=== PATIENT | male | born 1950 | race Caucasian/White ===

== ENCOUNTER 2018-06-22 06:27 | Inpatient (IN) | payer MEDICARE, OTHER ==
[2018-06-22] VITALS (16 sets, daily range): BP systolic 107–171; BP diastolic 54–102
[~2018-06-22] VITALS: Ht 152.4 cm; Wt 115.2 kg
--- NOTE | ~2018-06-22 | H ---
[address] [address] HISTORY AND PHYSICAL Name: JESSICA MURPHY Room: [address] IN ..#: [id number] Admission: 06/22/18 Attend Phys: Stoney Goodrich MD, F Discharge: 06/24/18 Date of : 46 Report #: [id number] THIS REPORT FOR: //name// For History and Physical please refer to the consultation note in the patient's medical record. By: [id number] Records Staff KARIN /RAMANA
[~2018-06-22 06:27] MED LIST: ADULT LOW DOSE81 MG PO; COLACE100 MG; ENOXAPARIN30 MG/0.3; FISH OIL 1,0001 EAC5 PO; FLOMAX PO; MIRALAX255 GM PO; MULTIVITAMINS OR; NOHOMEMEDICATIONS; NORCO 5-325 TA1 EACH; NORCO 5-325 TA1 EACH PO; OXYIR 5 MG CAPSU5 M1; PERCOCET 10-321 EACH PO; PERCOCET 5-3251 EACH PO; PYRIDIUM200 MG OR; REGLAN 10 MG TA10 M1 PO; VICODIN 5-5001 EACH
[2018-06-22] MEDS ORDERED: METFORMIN HCL500 MG PO (06:58)
[2018-06-22] MEDS ORDERED: LIPITOR10 MG PO (06:59)
[2018-06-22 07:01] LABS: ABSOLUTE BASOPHILS 0.1 thou/uL (0.0-0.2); ABSOLUTE EOSINOPHILS 0.3 thou/uL (0.0-0.7); ABSOLUTE LYMPHOCYTES 3.6 thou/uL (0.8-5.3); ABSOLUTE MONOCYTES 1.2 thou/uL (0.0-1.2); ABSOLUTE NEUTROPHILS 5.9 thou/uL (1.6-8.1); BASOPHILS 0.6 %; EOSINOPHILS 3.1 %; HEMATOCRIT 50.6 % (42.0-52.0); HEMOGLOBIN 16.9 gm/dL (14.0-18.0); LYMPHOCYTES 32.3 %; MCHC 33.4 g/dL (28.0-37.0); MCV 86.8 fL (80.0-100.0); MONOCYTES 10.5 %; MPV 8.9 fl. (7.2-11.1); NUCLEATED RBCS 0 /100WBC; PLATELET COUNT* 212 thou/uL (150-400); POLYS 53.5 %; RBC 5.83 mil/uL (4.50-6.00); RDW-CV 13.8 % (10.5-14.5)
[2018-06-22 07:04] LABS: ANION GAP 13 mmol/L (7-16); APTT 26.7 Seconds (25.0-31.3); BUN 19 mg/dL (7-18); CALCIUM 9.6 mg/dL (8.5-10.1); CHLORIDE 103 mmol/L (98-107); CO2 24 mmol/L (21-32); CREATININE 1.4 mg/dL (0.6-1.3); GLUCOSE 204 mg/dL (70-99); POTASSIUM 4.4 mmol/L (3.5-5.1); PROTIME 10.1 Seconds (9.20-11.50); SODIUM 140 mmol/L (136-145)
[2018-06-22 07:10] LABS: ALBUMIN 4.1 g/dL (3.4-5.0); ALKALINE PHOSPHATASE 119 U/L (46-116); CHOLESTEROL 129 mg/dL (<200); HDL CHOLESTEROL 32 mg/dL (>40); LDL CHOLESTEROL 69 mg/dL (<100); MAGNESIUM 2.2 mg/dL (1.8-2.4); SGOT 24 U/L (15-37); SGPT 41 U/L (30-65); TOTAL BILIRUBIN 0.4 mg/dL (<0.1-1.0); TOTAL PROTEIN 7.4 g/dL (6.4-8.2); TRIGLYCERIDE 143 mg/dL (<150); TROPONIN-I LEVEL <0.06 ng/mL (<0.06); VLDL 29 mg/dL (<40)
[2018-06-22 07:12] LABS: SERUM ASSESSMENT Clear
--- NOTE | 2018-06-22 11:52 | EKG ---
[place] [address] ELECTROCARDIOGRAM REPORT Name: JESSICA MURPHY Room: [place] [address] ADM IN .R.#: [id number] Admission: 06/22/18 Attend Phys: Stoney Goodrich MD, F Discharge: Date of : 46 Report #: [id number] THIS REPORT FOR: //name// [facility] ED Test Date: 2018-06-22 Test Time: 06:44:58 Pat Name: JESSICA MURPHY Department: Room: [facility] Gender: M Steel Manager: Immanuel JOY : 1950 Requested By: Madhu Euceda Order Number: [id number] MD: Stoney Goodrich Measurements Intervals [place] Rate: 66 P: 60 ID: 162 QRS: -62 QRSD: 117 T: 70 QT: 407 QTc: 427 Interpretive Statements Sinus rhythm Left anterior fascicular block Low voltage, precordial leads Consider anterolateral infarct Baseline wander in lead(s) V2 Compared to ECG 07/07/2012 08:41:04 Left anterior fascicular block now present Low QRS voltage now present Myocardial infarct finding now present Right bundle-branch block no longer present Electronically Signed On 06-22-2018 11:52:01 IMPLEMENTATION PROJECT MANAGER by Stoney Goodrich [email or web address] <ELECTRONICALLY SIGNED> By: Stoney Goodrich MD, [facility] 06/22/18 1152 0644 0644 Stoney Goodrich MD, [facility] /EPI
--- NOTE | 2018-06-22 11:56 | EKG ---
[place] [address] ELECTROCARDIOGRAM REPORT Name: JESSICA MURPHY Room: [place] [address] ADM IN .R.#: [id number] Admission: 06/22/18 Attend Phys: Stoney Goodrich MD, F Discharge: Date of : 46 Report #: [id number] THIS REPORT FOR: //name// [facility] Test Date: 2018-06-22 Test Time: 10:30:57 Pat Name: JESSICA MURPHY Department: Room: [place] [address] Gender: M Server Security Administrator: : 1950 Requested By: Stoney Goodrich Order Number: [id number] Reading MD: Stoney Goodrich Measurements Intervals [place] Rate: 59 P: 55 RI: 173 QRS: 160 QRSD: 106 T: 76 QT: 400 QTc: 397 Interpretive Statements Sinus rhythm Anterior infarct, old Electronically Signed On 06-22-2018 11:56:21 SHINGLER by Stoney Goodrich [email or web address] <ELECTRONICALLY SIGNED> By: Stoney Goodrich MD, [facility] 06/22/18 1156 1030 1030 Stoney Goodrich MD, [facility]ACC /EPI
[2018-06-23] VITALS (9 sets, daily range): BP systolic 104–139; BP diastolic 58–83
[2018-06-23 02:31] LABS: HEMATOCRIT 43.8 % (42.0-52.0); MCH 29.2 pg (26.0-34.0); MCHC 33.3 g/dL (28.0-37.0); MCV 87.7 fL (80.0-100.0); RBC 4.99 mil/uL (4.50-6.00); RDW-CV 13.7 % (10.5-14.5); WBC 9.8 thou/uL (4.0-11.0)
[2018-06-23 02:37] LABS: HEMOGLOBIN 14.6 gm/dL (14.0-18.0)
[2018-06-23 02:45] LABS: ALBUMIN 3.3 g/dL (3.4-5.0); CALCIUM 8.6 mg/dL (8.5-10.1); CREATININE 1.4 mg/dL (0.6-1.3); POTASSIUM 4.6 mmol/L (3.5-5.1); TOTAL BILIRUBIN 0.5 mg/dL (<0.1-1.0); TOTAL PROTEIN 6.1 g/dL (6.4-8.2)
[2018-06-23 03:05] LABS: TROPONIN-I LEVEL 89.84 ng/mL (<0.06)
--- NOTE | 2018-06-23 10:01 | EKG ---
[place] [address] ELECTROCARDIOGRAM REPORT Name: JESSICA MURPHY Room: [address] ADM IN M.R.#: [id number] Admission: 06/22/18 Attend Phys: Stoney Goodrich MD, F Discharge: Date of : 46 Report #: [id number] THIS REPORT FOR: //name// [facility] Test Date: 2018-06-23 Test Time: 07:38:09 Pat Name: JESSICA MURPHY Department: Room: [address] Gender: M Space Studies Faculty Member: ILIANA : 1950 Requested By: Stoney Goodrich Order Number: [id number] Reading MD: Mushtaq Dawkins Measurements Intervals [place] Rate: 61 P: 61 TX: 171 QRS: 161 QRSD: 105 T: 87 QT: 453 QTc: 457 Interpretive Statements Sinus rhythm Anterolateral infarct, age indeterminate Compared to ECG 06/22/2018 10:30:57 No significant changes Electronically Signed On 06-23-2018 10:01:02 APPLICATIONS ADMINISTRATOR by Mushtaq Dawkins [email or web address] <ELECTRONICALLY SIGNED> By: Mushtaq Dawkins MD, [facility] 06/23/18 1001 0738 0738 Mushtaq Dawkins MD, [facility] /EPI
--- NOTE | 2018-06-23 17:08 | CARD ---
[address] [address] CARDIAC CATH REPORT Name: MURPHYJESSICA J Room: [address] IN ..#: [id number] Admission: 06/22/18 Attend Phys: Stoney Goodrich MD, F Discharge: Date of : 46 Report #: [id number] THIS REPORT FOR: //name// APPROVED REPORT Study performed: 06/22/2018 06:37:15 Patient Details Patient Status: ED Room #: The patient is a 68 year-old male Event Personnel Stoney Goodrich Boring Machine Operator Helper, Candi Kaufman RN RN, Silvia Griffin Monitor, Colton Galicia Parks, Tina RN Monitor, Judy Griffin RTR Monitor Procedures Performed Art Access - R femoral artery* Left Heart Cath w/or w/o Coronaries LHC BMS Place w/wo Plasty Single LAD BMSSINGLE Hemostasis w/ Angioseal Indication Abnormal ECG, STEMI (>0 to less than or equal to 6 hours), Chest pain Risk Factors Hypercholesterolemia, Diabetes Admission/Lab Medications/Medications given during procedure Glycoprotein IllbIlla Inhibitors, Heparin Unfract. Procedure Narrative The patient was brought urgently to the Cardiac Catheterization Laboratory and was prepped and draped in a sterile manner. The right femoral was infiltrated with 2% Lidocaine subcutaneous anesthesia. A 6fr Ultimum Sheath sheath was inserted into the right femoral artery. Coronary angiography was performed using coronary diagnostic catheters. The right coronary system was accessed and visualized with a Diagnostic 6Fr JR4 catheter. The left coronary system was accessed and visualized with a Diagnostic 6Fr JL4 catheter. The left ventricle was accessed and visualized with a Diagnostic 6Fr angled pigtail catheter. Left ventricular/Aortic Valve gradient assessed via catheter pullback. Left ventriculogram was performed in LIZARRAGA projection. Closure device was deployed with a 6 [place] [address] CARDIAC CATH REPORT Name: JESSICA MURPHY Room: [address] IN ..#: [id number] Admission: 06/22/18 Attend Phys: Stoney Goodrich MD, F Discharge: Date of : 46 Report #: [id number] patient tolerated the procedure well and there were no complications associated with the procedure. There was no hematoma. Intraoperative Conscious Sedation Sedation start time: 7:26 Case end Time: 7:58 Fentanyl 25.0 mcg Versed 2 mg Fluoro Time: 3.6 minutes Dose: DAP 15386 cGycm2 1319 mGy Contrast Type and Amount: Omnipaque 140 ml Coronary Angiography The patient's coronary anatomy is left dominant. Diagnostic Cath Left Main 0% stenosis LAD proximal lad had a 100% stenosis with thrombus after stenting, 50% mid and 60% distal stenosis noted Diagonal 3 80% ostial stenosis noted of medium sized vessel Circumflex 30% proximal and 60% mid stenosis noted Right Coronary 30% mid and 40% distal stenosis noted RPLV 40% proximal stenosis noted Left Ventriculography The left ventricular ejection fraction is estimated to be 35-40%. Left ventricular wall motion abnormalities are present. There is no mitral insufficiency. akinesis noted of distal anteroapical wall Hemodynamics The aortic pressure is 130/82 mmHg with a mean of 104 mmHg. The left ventricular pressure is 94/26 mmHg with a mean of mmHg. The left ventricular end diastolic pressure is 30 mmHg. There was no gradient across the aortic valve upon pullback. Pullback from the left ventricle to the aorta revealed no gradient across the aortic valve. PCI Technique Lesion Anticoagulation was achieved with Heparin. iv aggrastat given Percutaneous coronary intervention was performed on the proximal left anterior descending artery segment. The lesion stenosis prior to intervention was 100% with RICKEY 0 flow. A 6F XB LAD 4.0 Guide Catheter was used to engage the lm ostium. A BMW 190cm Interventional Guidewire [place] [address] CARDIAC CATH REPORT Name: JESSICA MURPHY Room: [address]#: [id number] Admission: 06/22/18 Attend Phys: Stoney Goodrich MD, F Discharge: Date of : 46 Report #: [id number] BALLOON DILATION A Balloon catheter Trek RX 2.5 X 8 was inserted and inflated up to 16.00atm for 12seconds. Repeat angiography revealed the following post-dilatation results: 70% mid lad stenosis. Additional Inflation: 15.00atm for 11seconds. STENT DEPLOYMENT A drug-eluting stent Xience [place] 3.0X18mm was inserted and inflated up to 18.00atm for 11seconds. Repeat angiography revealed the following post-stent deployment results: 0% stenosis. Additional Inflation: 20.00atm for 18seconds. Final angiography reveals 0 % stenosis with RICKEY 3 flow. Conclusion 1. acute occlusion of the proximal lad 2. successful placement of a drug eluting stent 3. LV ejection fraction of 35-40% Recommendations Cardiac Rehabilitation Referral Aggressive Medical Therapy Medications Administered Ticagrelor <ELECTRONICALLY SIGNED> By: Stoney Goodrich MD, FACC 06/23/181707 07 07Stoney Goodrich MD, FACC /INF
[2018-06-23 19:08] LABS: GLYCOHEMOGLOBIN (HGB A1C) 6.6 % (4.8-5.6)
[2018-06-24] VITALS: BP 132/83
[2018-06-24 04:00] VITALS: BP 120/80
[2018-06-24 08:00] VITALS: BP 129/77
[2018-06-24 10:10] VITALS: BP 117/64
[2018-06-24] MEDS ORDERED: COZAAR 25 MG TA25 M1 PO (10:24)
[2018-06-24] MEDS ORDERED: CARVEDILOL3.125 MG PO (10:25)
[2018-06-24] MEDS ORDERED: NITROGLYCERIN0.4 MG SUBLING (10:25)
[2018-06-24] MEDS ORDERED: BRILINTA90 MG PO (10:26)
[2018-06-24] MEDS ORDERED: TYLENOL325 MG PO (10:27)
--- NOTE | 2018-06-24 14:31 | EKG ---
[place] [address] ELECTROCARDIOGRAM REPORT Name: JESSICA MURPHY Room: [address] DIS IN .R.#: [id number] Admission: 06/22/18 Attend Phys: Stoney Goodrich MD, F Discharge: 06/24/18 Date of : 46 Report #: [id number] THIS REPORT FOR: //name// [facility] Test Date: 2018-06-24 Test Time: 08:18:43 Pat Name: JESSICA MURPHY Department: Room: [facility] Gender: M Pelt Dropper: : 1950 Requested By: Stoney Goodrich Order Number: [id number] Aime MD: Stoney Goodrich Measurements Intervals [place] Rate: 58 P: 60 ID: 172 QRS: 187 QRSD: 112 T: 137 QT: 463 QTc: 455 Interpretive Statements Sinus rhythm anteroseptal infarct, recent Lateral leads are also involved Compared to ECG 06/23/2018 07:38:09 No significant changes Electronically Signed On 06-24-2018 14:31:27 BOATBUILDER SUPERVISOR by Stoney Goodrich [email or web address] <ELECTRONICALLY SIGNED> By: Stoney Goodrich MD, [facility] 06/24/18 1431 7 7 Stoney Goodrich MD, [facility] /EPI
--- NOTE | 2018-06-29 13:08 | D ---
[address] [address] DISCHARGE SUMMARY Name: JESSICA MURPHY Room: [address] IN .R.#: [id number] Admission: 06/22/18 Attend Phys: Stoney Goodrich MD, F Discharge: 06/24/18 Date of : 46 Report #: [id number] THIS REPORT FOR: //name// CC: Cy Burroughs DATE OF SERVICE: 06/24/2018 DISCHARGE DIAGNOSES: 1. Acute anterior wall ST segment elevation myocardial infarction. 2. Type 2 diabetes mellitus. 3. Hypercholesterolemia. 4. Coronary artery disease. 5. Chronic kidney disease. CONSULTANTS: None. PROCEDURES: Emergent left heart catheterization with placement of a single drug-eluting stent in the mid left anterior descending artery via the femoral approach. HISTORY OF PRESENT ILLNESS: The patient is a 68-year-old white male who came to the Emergency Room, complaining of chest pain. The patient has risk factors for coronary artery disease, but no history of heart disease. He actually had a nuclear stress test in November that showed no significant ischemia. On the morning of admission, he was driving to work about 6:00 a.m. and he began to have chest pain, radiating to his jaw. He became short of breath, nauseated and diaphoretic. He drove home and called an ambulance. Paramedics brought him here to [facility]. He was found to be having an acute anterior STEMI. A code STEMI was activated. I was asked to see him on an emergent basis. PAST MEDICAL HISTORY: Significant for cervical spine fusion, kidney stone removal, hyperlipidemia, diabetes. MEDICATIONS: Include metformin, Lipitor, aspirin. ALLERGIES: He had no known drug allergies. PHYSICAL EXAMINATION: VITAL SIGNS: Blood pressure 150/80, pulse 60. CHEST: Clear to auscultation. HEART: Regular rate and rhythm. ABDOMEN: Soft, nontender. EXTREMITIES: [place] [address] DISCHARGE SUMMARY Name: JESSICA MURPHY Sasha Room: [address]#: [id number] Admission: 06/22/18 Attend Phys: Stoney Goodrich MD, F Discharge: 06/24/18 Date of : 46 Report #: [id number] SKIN: Warm and dry. LABORATORY DATA: ECG, sinus rhythm, ST segment elevation of up to 4 mm in V2, V3, V4, V5, V6. Chest x-ray showed cardiomegaly, otherwise clear lung lopez. Lab work: Creatinine 1.4. Liver function studies were normal. Troponin on admission 0.06. Cholesterol 129, triglyceride 143, HDL 32, LDL 169. Hemoglobin 16.9. HOSPITAL COURSE: The patient was brought urgently to the cardiac catheterization lab. He was felt to be having an acute anterior STEMI. I performed urgent cardiac catheterization from the right femoral artery. Results showed that the proximal LAD was completely occluded acutely. The third diagonal branch had an ostial 80% stenosis. The circumflex had a mid 60% stenosis. The distal right coronary had a 40% stenosis. I then performed emergent angioplasty with reperfusion of the LAD and I placed a single drug-eluting stent in the mid LAD. He tolerated the procedure well. Ejection fraction appeared to be 35% -40% with distal anteroapical akinesia, but no significant mitral regurgitation. At the end of procedure, Angio-Seal was placed. The patient was given intravenous heparin and Aggrastat during the procedure. Fortunately, he had no significant chest pain or heart failure. He had a short run of nonsustained ventricular tachycardia after the procedure. The patient was transferred out of the ICU the following day. He began to ambulate with cardiac rehabilitation. He had no further complaints. At the time of discharge, he was ambulating, had no significant complaints. There was no hematoma in the groin. His vital signs at time of discharge, he had a blood pressure 120/80, pulse 60. He was afebrile. Additional lab work during his hospitalization included a repeat creatinine 1.4. Fasting blood sugar 124. SGOT increased to 153. Troponin peaked at 89, glycosylated hemoglobin of 6.6, repeat hemoglobin is 14.6 and there was no drop in platelet count. The patient was discharged on his home medications that consisted of metformin 500 mg twice day, Lipitor was increased to 20 mg a day. He was to continue aspirin 81 mg a day. In addition, he was started on carvedilol 3.125 mg twice a day, Brilinta 90 mg twice a day. He was given nitroglycerin to take as needed for chest pain and started on losartan 25 mg a day. He was discharged to return to care of Dr. Cy Bender for routine medical care including management of his diabetes. He will see my nurse practitioner in 1 week. If he remained stable, he will be given a release to return to work. I did recommend he enroll in cardiac rehabilitation. I did encourage the patient to enroll in the [facility] trial here at [facility], which randomizes patients to Entresto versus an SISI inhibitor in patients with heart failure following a myocardial infarction. The patient is scheduled to see my nurse practitioner in 1 week and I plan to see him in the Cardiology Clinic in 8 weeks for followup. His prognosis is guarded [address] [place] [address] DISCHARGE SUMMARY Name: JESSICA MURPHY Room: [address] IN M.R.#: [id number] Admission: 06/22/18 Attend Phys: Stoney Goodrich MD, F Discharge: 06/24/18 Date of : 46 Report #: [id number] due to residual cardiomyopathy. Hopefully, he will have improvement in his ejection fraction. <ELECTRONICALLY SIGNED> By: Stoney Goodrich MD, FACC 06/29/18 1308 0752 0821Daviwild Goodrich MD, FACC /nt
--- NOTE | 2018-06-29 13:08 | CON ---
[address] [address] CONSULTATION Name: JEFFREYJESSICA J Room: [address] IN M.R.#: [id number] Admission: 06/22/18 Attend Phys: Stoney Goodrich MD, F Discharge: 06/24/18 Date of : 46 Report #: [id number] THIS REPORT FOR: //name// CC: Cy Burroughs DATE OF SERVICE: 06/22/2018 CARDIOLOGY CONSULTATION HISTORY OF PRESENT ILLNESS: The patient is a 68-year-old white male who I was asked to see at the hospital after he complained of chest pain. The patient has no previous history of heart disease. He does have risk factors for heart disease and actually underwent a nuclear stress test in November. He walked for 5 minutes 45 seconds. Peak heart rate is 141, which is 90% of predicted. There were no ST segment changes. Perfusion images showed no ischemia with normal ejection fraction of 72%. He does not exercise on a regular basis. He was doing well until this morning. He was driving to work about 6:00 in the morning. He began to have pain in his chest that radiated to his jaw. He became short of breath, nauseated, diaphoretic. He turned around and drove home. He called the ambulance. Paramedics arrived. ECG showed evidence of an anterior STEMI. A code STEMI was activated. He was brought here to [facility] by ambulance. On arrival here, he was given morphine, nitroglycerin, metoprolol, aspirin and heparin. He was transferred to the cardiac catheterization lab on an emergent basis. On arrival to the cath lab manager, his pain has resolved. He denies exertional dyspnea, any fever, cough or bleeding. PAST MEDICAL HISTORY: He has had previous cervical spine fusion. He has had a kidney stone removed. He has a history of diabetes, hyperlipidemia. MEDICATIONS: Include metformin, Lipitor, aspirin. ALLERGIES: He has no known drug allergies. FAMILY HISTORY: Positive for heart disease. SOCIAL HISTORY: He is . 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 No smoking or alcohol abuse. REVIEW OF SYSTEMS: He has had no history of stroke, asthma. He had a peptic ulcer years ago. No liver disease, no cancer. No chronic skin condition. PHYSICAL EXAMINATION: GENERAL: Revealed an elderly male who appeared in mild distress secondary [place] [address] CONSULTATION Name: JESSICA MURPHY Room: [address]#: [id number] Admission: 06/22/18 Attend Phys: Stoney Goodrich MD, F Discharge: 06/24/18 Date of : 46 Report #: [id number] VITAL SIGNS: Blood pressure 150/80, pulse 60. He is afebrile. HEENT: He is anicteric. Conjunctivae pink. Mucous membranes moist. NECK: Neck veins do not appear distended. No carotid bruits. Neck supple. CHEST: Clear to auscultation. CARDIOVASCULAR: Regular rate and rhythm, no murmur. ABDOMEN: Soft. EXTREMITIES: Had no edema. Dorsalis pedis pulse 2+ bilaterally. SKIN: Warm, dry. NEUROLOGIC: Nonfocal. ECG showed a sinus rhythm. There was ST segment elevation of up to 4 mm in V2, V3, V4, V5 and V6 with T-wave inversion in aVR, aVL. His workup so far, he had a portable chest x-ray that showed cardiomegaly, otherwise clear lung lopez. LABORATORY DATA: Sodium 140, BUN 19, creatinine 1.4, glucose 204. Liver function studies were normal. Troponin 0.06. Cholesterol 129, triglyceride 143, HDL 32, LDL 169. White blood cell count 11.0, hemoglobin 16.9, platelet count 212,000. IMPRESSION AND RECOMMENDATIONS: 1. Acute anterior wall ST segment elevation myocardial infarction. Recommend urgent cardiac catheterization. 2. Diabetes. 3. Hyperlipidemia. The patient is on a statin drug. 4. Chronic kidney disease. 5. History of kidney stone. <ELECTRONICALLY SIGNED> By: Stoney Goodrich MD, FACC 06/29/18 1308 0807 [id number] Goodrich MD, FACC /nt
== END 2018-06-24 11:12 | disposition home or self-care (01) | DRG 246 ==
LOC: M.ERS 06:27 → M.CL 06:27 → M.TBA-CV 07:14 → M.CL 07:14 → M.TBA-CV 07:25 → M.ICU 07:25 → M.2W 06-23 11:29
PROVIDERS: Family Medicine; ADMIT Internal Medicine Cardiovascular Disease
DX: I21.09 ST elevation (STEMI) myocardial infarction involving other coronary artery of anterior wall (principal); I50.21 Acute systolic (congestive) heart failure; I42.9 Cardiomyopathy, unspecified; I47.2 Ventricular tachycardia; N18.9 Chronic kidney disease, unspecified; E11.22 Type 2 diabetes mellitus with diabetic chronic kidney disease; E78.00 Pure hypercholesterolemia, unspecified; I25.10 Atherosclerotic heart disease of native coronary artery without angina pectoris; Z87.442 Personal history of urinary calculi; Z98.1 Arthrodesis status; Z79.82 Long term (current) use of aspirin; Z79.84 Long term (current) use of oral hypoglycemic drugs; Z79.899 Other long term (current) drug therapy; Z82.49 Family history of ischemic heart disease and other diseases of the circulatory system

== ENCOUNTER → 2019-04-02 | Outpatient (CLI) | payer MEDICARE, OTHER ==
[~2019-04-02] MED LIST changes: +BRILINTA90 MG PO; +CARVEDILOL3.125 MG PO; +COZAAR 25 MG TA25 M1 PO; +LIPITOR10 MG PO; +METFORMIN HCL500 MG PO; +NITROGLYCERIN0.4 MG SUBLING; +TYLENOL325 MG PO
== END ==
LOC: M.MRI 13:34
DX: M47.816 Spondylosis without myelopathy or radiculopathy, lumbar region (principal); M51.26 Other intervertebral disc displacement, lumbar region; M48.062 Spinal stenosis, lumbar region with neurogenic claudication; M47.817 Spondylosis without myelopathy or radiculopathy, lumbosacral region; N28.1 Cyst of kidney, acquired

== ENCOUNTER → 2019-09-10 | Outpatient (CLI) | payer MEDICARE, OTHER | LOC: M.ULTRA 14:39 | DX: E04.1 Nontoxic single thyroid nodule (principal); I65.23 Occlusion and stenosis of bilateral carotid arteries ==